=== PATIENT | male | born 1940 | race Caucasian/White ===

== ENCOUNTER 2016-12-25 15:53 | Emergency (ER) | payer MEDICARE, OTHER ==
[2016-12-25 16:09] VITALS: BP 161/77
[2016-12-25 18:15] LABS: ANION GAP 8 (5-19); BLOOD UREA NITROGEN 16 mg/dL (7-20); CALCIUM 8.9 mg/dL (8.4-10.2); CARBON DIOXIDE 24 mmol/L (22-30); CHLORIDE 107 mmol/L (98-107); CREATININE RESULT 1.11 mg/dL (0.52-1.25); GLUCOSE 99 mg/dL (75-110); POTASSIUM 4.4 mmol/L (3.6-5.0); SODIUM 138.8 mmol/L (137-145)
[2016-12-25] MEDS ORDERED: RIVAROXABAN 15 MG TABLET PO ONE (18:31)
--- NOTE | 2016-12-25 18:31 | ER Document Report ---
ED Medical Screen (RME) - General Chief Complaint: Abnormal Lab Results Stated Complaint: POSSIBLE BLOOD COT Time Seen by Provider: 12/25/16 17:36 Mode of Arrival: Ambulatory Information source: Patient Notes: Patient was referred from radiology. He had been sent to radiology for an outpatient ultrasound. This ultrasound was positive for a DVT. He was sent here for further evaluation. I spoke with Dr. Blanco and he recommended getting lab work and then started the patient on oral anticoagulation. Patient does complain of some left leg pain. It has been chronic. It is moderate. It is worse with movement and better with rest. It does radiate up his left leg. TRAVEL OUTSIDE OF THE [place] IN LAST 30 DAYS: No - Related Data Allergies/Adverse Reactions: No Known Allergies Allergy (Unverified 12/25/16 16:07) Past Medical History - General Information source: Patient - Social History Chew tobacco use (# tins/day): No Frequency of alcohol use: Occasional Drug Abuse: None Family history: Reviewed & Not Pertinent - Past Medical History Cardiac Medical History: Denies: Hx Heart Attack Renal/ Medical History: Denies: Hx Peritoneal Dialysis Past Surgical History: Reports: Hx Orthopedic Surgery - left hip 10/2016 Review of Systems - Review of Systems Constitutional: denies: Chills, Fever Cardiovascular: denies: Chest pain, Palpitations Respiratory: denies: Cough, Short of breath Gastrointestinal: denies: Abdominal pain, Vomiting -: Yes All other systems reviewed and negative Physical Exam - Vital signs Vitals: Temp Pulse Resp BP Pulse Ox 97.7 F 62 20 161/77 H 97 12/25/16 16:07 12/25/16 16:07 12/25/16 16:07 12/25/16 16:07 12/25/16 16:07 Interpretation: Hypertensive - General General appearance: Appears well, Alert - HEENT Head: Normocephalic, Atraumatic Eyes: Normal Pupils: PERRL - Respiratory Respiratory status: No respiratory distress Chest status: Nontender Breath sounds: Normal Chest palpation: Normal - Cardiovascular Rhythm: Regular Heart sounds: Normal auscultation Murmur: No - Abdominal Inspection: Normal Distension: No distension Bowel sounds: Normal Tenderness: Nontender Organomegaly: No organomegaly - Back Back: Normal, Nontender - Extremities General upper extremity: Normal inspection, Nontender, Normal color, Normal ROM , Normal temperature General lower extremity: Normal ROM, Normal temperature, Other - Patient lower extremity does have some slight swelling erythema and edema consistent with DVT.. No: Armando's sign - Neurological Neuro grossly intact: Yes Cognition: Normal Orientation: AAOx4 Timmy Coma Scale Eye Opening: Spontaneous Timmy Coma Scale Verbal: Oriented Timmy Coma Scale Motor: Obeys Commands [place] Coma Scale Total: 15 Speech: Normal Motor strength normal: LUE, RUE, LLE, RLE Sensory: Normal - Psychological Associated symptoms: Normal affect, Normal mood - Skin Skin Temperature: Warm Skin Moisture: Dry Skin Color: Normal Course - Vital Signs Vital signs: Temp Pulse Resp BP Pulse Ox 97.7 F 62 20 161/77 H 97 12/25/16 16:07 12/25/16 16:07 12/25/16 16:07 12/25/16 16:07 12/25/16 16:07 - Laboratory Result Diagrams: 12/25/16 17:40 Doctor's Discharge - Discharge Clinical Impression: Dvt femoral (deep venous thrombosis) Condition: Stable Disposition: HOME, SELF-CARE Instructions: DVT Outpatient Treatment ([facility]) Additional Instructions: Please follow-up with Dr. Cartagena in the am. Prescriptions: Rivaroxaban [Xarelto 15 mg Tablet] 15 mg PO BID #14 tablet Referrals: DEYSI CARTAGENA MD [ACTIVE STAFF] - Follow up tomorrow
== END 2016-12-25 18:48 | disposition home or self-care (01) ==
LOC: ER 15:53
DX: I82.412 Acute embolism and thrombosis of left femoral vein (principal); M79.605 Pain in left leg
CPT/HCPCS: 99283; 36415; 80048; 93971 ×2; A9270

== ENCOUNTER → 2016-12-25 | Outpatient (CLI) | payer MEDICARE, OTHER ==
--- NOTE | 2016-12-25 15:50 | XCELERA REPORT ---
[address] [address] Lower Extremity Venous Evaluation Name: BHAVANA LUI Age: 76 yrs Gender: Male : 1940 Patient Status: Outpatient Patient Location: Study Date: 12/25/2016 02:26 PM Procedure: Color flow and duplex imaging of the veins of the left lower extremity as well as the right Common Femoral vein. Reason For Study: LLE PAIN Ordering Physician: NINA MARC, PAC Performed By: Cesar Cuellar Right Sided Venous Evaluation The right common femoral vein is fully compressible. Spontaneous and phasic flow is present in the right common femoral vein. Left Sided Venous Evaluation Abnormal vessel filling , lack of compression and no augmentation or significant Colour flow from the mid Femoral vein to the Gastrocnemius, Peroneal and Posterior Tibial veins.. Critical Findings Called in to JENNIFER Marc at 1540 hours. Recommended patient go to ER for treatment. Interpretation Summary Extensive DVT in the left lowered extremity. Transferred to the ER . : VONNIE STRATTON [place]
== END ==
LOC: SP 13:56
PROVIDERS: ATTEND Physician Assistant
DX: M79.662 Pain in left lower leg (principal); Z96.641 Presence of right artificial hip joint
CPT/HCPCS: 93971

== ENCOUNTER → 2017-10-03 | Outpatient (CLI) | payer MEDICARE, OTHER ==
--- NOTE | 2017-10-03 15:02 | RADIOLOGY REPORT (SQ) ---
EXAM DESCRIPTION: VENOUS UNILATERAL UPPER COMPLETED DATE/TIME: 10/03/2017 2:13 pm REASON FOR STUDY: LUE PARESTHESIA OF SKIN R20.2 PARESTHESIA OF SKIN COMPARISON: None. TECHNIQUE: Dynamic and static smart scale and color images acquired of the left arm venous system. Se lected spectral images acquired with additional compression and augmentation maneuvers. The contralat eral subclavian vein and internal jugular vein were also imaged. Images stored on PACS. LIMITATIONS: None. FINDINGS: INTERNAL JUGULAR VEIN: Normal phasicity, compression, augmentation. No visualized echogeni c material on smart scale. No defects on color images. Comparison opposite side normal. SUBCLAVIAN VEIN: Normal compression, augmentation. No visualized echogenic material on smart scale. No defects on color images. AXILLARY VEIN: Normal compression, augmentation. No visualized echogenic material on smart scale. No d efects on color images. BRACHIAL VEIN: Normal compression, augmentation. No visualized echogenic material on smart scale. No d efects on color images. BASILIC VEIN: Normal compression, augmentation. No visualized echogenic material on smart scale. No de fects on color images. CEPHALIC VEIN: Normal compression, augmentation. No visualized echogenic material on smart scale. No d efects on color images. OTHER: No other significant finding. CONTRALATERAL SUBCLAVIAN VEIN AND INTERNAL JUGULAR VEIN: Normal phasicity, compression and augmentation. No visualized echogenic material on smart scale. No de fects on color images. IMPRESSION: NO EVIDENCE DVT OR SVT LEFT ARM. TECHNICAL DOCUMENTATION: JOB ID: [id number] [employer]- All Rights Reserved Reading location - IP/workstation name: [email or web address]
--- NOTE | 2017-10-03 15:06 | RADIOLOGY REPORT (SQ) ---
EXAM DESCRIPTION: ARTERIAL UPPER EXTREM UNILAT COMPLETED DATE/TIME: 10/03/2017 2:13 pm REASON FOR STUDY: LUE PARESTHESIA OF SKIN R20.2 PARESTHESIA OF SKIN COMPARISON: None. TECHNIQUE: Dynamic and static smart scale and color images acquired of the left upper extremity arter ies. Additional selected spectral images recorded. Images saved to PACS. LIMITATIONS: None. FINDINGS: RIGHT UPPER EXTREMITY: DISTAL RADIAL AND ULNAR ARTERIES: Normal Doppler waveforms. No velocity elevation to suggest stenosi s. Normal color Doppler evaluation. OTHER: No other significant finding. LEFT UPPER EXTREMITY: SUBCLAVIAN: Normal Doppler waveforms. No velocity elevation to suggest stenosis. AXILLARY: Normal Doppler waveforms. No velocity elevation to suggest stenosis. Normal color Doppler evaluation. BRACHIAL: Normal Doppler waveforms. No velocity elevation to suggest stenosis. Normal color Doppler evaluation. RADIAL: Normal Doppler waveforms. No velocity elevation to suggest stenosis. Normal color Doppler e valuation. ULNAR: Normal Doppler waveforms. No velocity elevation to suggest stenosis. Normal color Doppler ev aluation. OTHER: No other significant finding. IMPRESSION: ESSENTIALLY NORMAL LEFT UPPER EXTREMITY ARTERIAL DOPPLER. TECHNICAL DOCUMENTATION: JOB ID: [id number] [employer]- All Rights Reserved Reading location - IP/workstation name: [email or web address]
== END ==
LOC: SP 10:48
PROVIDERS: ATTEND Internal Medicine
DX: R20.2 Paresthesia of skin (principal)
CPT/HCPCS: 93931; 93971